=== PATIENT | male | born 2000 | race Caucasian/White ===

== ENCOUNTER 2021-11-25 06:48 | Emergency (ER) | payer MEDICAID, SELFPAY ==
--- NOTE | ~2021-11-25 | XR_ITS ---
EXAMINATION: XR CHEST CLINICAL INFORMATION: Dyspnea. COMPARISON: None TECHNIQUE: Frontal view of the chest was obtained. FINDINGS: No airspace opacities or pleural effusions are seen. The cardiomediastinal silhouette is normal. No acute osseous abnormality is seen. XR/XR chest 1V IMPRESSION: Clear lungs. No acute cardiopulmonary process.
[2021-11-25 06:50] VITALS: BP 156/85; PULSE 134; RESP 20; TEMP 36.9; O2SAT 96; BMI 29.8
[2021-11-25 07:07] LABS: COVID-19 Test Positive (Negative)
--- NOTE | 2021-11-25 07:57 | ED_ITS ---
HPI - SOB/Dyspnea General Chief Complaint: Dyspnea Stated Complaint: SoB, Chills Time Seen by Provider: 11/25/21 07:57 Source: patient Mode of arrival: ambulatory Limitations: no limitations History of Present Illness HPI Narrative: 21 years old male came in for evaluation of shortness of breath. Patient with history of asthma, been having shortness of breath and wheezing patient ran out of albuterol at home, patient is vaccinated with 2 Pfizer vaccination, patient possibly exposed to somebody sick, no fever but chills, patient ran out of his albuterol feeling wheezing. Patient tested positive for COVID today. Related Data Previous Rx's Medication Instructions Recorded albuterol sulfate 90 mcg/actuation 1 inh INHALATION QID PRN #8.5 g 11/25/21 aerosol inhaler prednisone 20 mg tablet 20 mg PO BID #10 tab 11/25/21 Allergies Allergy/AdvReac Type Severity Reaction Status Date / Time No Known Allergies Allergy Verified 11/25/21 06:50 Review of Systems Review of Systems: All other systems are reviewed and are negative Constitutional: Reports as per HPI and Reports no additional constitutional complaints Eyes: Reports as per HPI and Reports no additional eye complaints Reports system reviewed and no additional complaints, except as documented Cardiovascular: Reports as per HPI and Reports no additional cardiovascular complaints Respiratory: Reports as per HPI and Reports no additional respiratory complaints Gastrointestinal: Reports as per HPI and Reports no additional gastrointestinal complaints Genitourinary: Reports no additional female genitourinary complaints Musculoskeletal: Reports no additional musculoskeletal complaints Skin/Breast: Reports system reviewed and no additional complaints, except as docu Psychiatric: Reports no additional psychiatric complaints Endocrine: Reports no additional endocrine complaints Hematologic/Lymphatic: Reports no additional hematologic/lymphatic complaints Allergic/Immunologic: Reports no additional allergic/immunologic complaints Reports system reviewed and no additional complaints, except as documented and Reports Abnormal speech present [facility] Social History Social History Advance Directives: No Advance Directives Information Provided: Yes Physical Exam Vital Signs: Vital Signs: Last Vital Signs Temp 98.4 F 11/25/21 06:50 Pulse 134 H 11/25/21 06:50 Resp 20 11/25/21 06:50 BP 156/85 H 11/25/21 06:50 Pulse Ox 96 11/25/21 06:50 BMI result Body Mass Index 29.8 Vital signs have been reviewed as appeared to be correct. Blood pressure normal. Heart rate elevated. Respiration rate normal. Temperature normal. Oxygen saturation normal. Appearance: Alert. Oriented X3. No acute distress. Head: Normal external exam. Normocephalic. Atraumatic. No Bolivar signs noted. No raccoon eyes noted Eyes: PERRLA. EOMI. Conjunctiva and sclera normal. Eyelids normal. ENT: TM's Normal. Pharynx normal. Uvula midline. Moist mucous membranes. No trismus noted. No drooling noted. No muffled voice noted. Neck: Normal inspection. Neck supple. FROM. No adenopathy. Thyroid Normal. No meningeal signs. No neck mass noted. CVS: Normal heart rate and rhythm. Heart sound normal. No murmurs noted. Pulses normal throughout. Respiratory: No respiratory distress. Painless inspiration. Breath sounds normal. Diffuse expiratory mild wheezing with prolonged expiration. Chest nontender. No accessory muscle usage noted or decreased air movement noted. Abdomen: Soft and nontender. Bowel sounds normal in all 4 quadrants. No distention noted. No organomegaly noted. No visible injury noted. Back: No CVA tenderness. Full range of motion noted. Skin: Skin warm and dry. Normal skin color. Normal skin turgor. No rashes/lesions/lacerations noted. Extremities: No lower extremity edema. Extremities exhibit normal range of motion. Extremities nontender. Neuro: Oriented X 3. Cranial nerve exam: II-XII are grossly intact No motor deficit. No sensory deficit. Reflexes normal. Course Course Course Narrative: Assessment and plan. 21-year-old male with history of asthma tested positive for COVID came in for difficulty breathing, patient meet criteria for monoclonal therapy which will recommend for the patient, will prescribe the patient albuterol and short course of prednisone. MDM - SOB/Dyspnea Lab Data Attestation: I reviewed the patient's lab results. Labs: Lab Results 11/25/21 Range/Units 06:54 COVID-19 (EVAN) Positive A (Negative) COVID-19 Clin Com See Note Imaging Data Chest x-ray: Attestation: I personally reviewed and interpreted this imaging study as follows: Radiologist's impression: Clear lungs. Discharge Plan Discharge Clinical Impression: Asthma with exacerbation, COVID-19 virus infection Patient Disposition: Home, Self-Care Instructions: COVID-19 (Coronavirus Disease 2019) (ED) Additional Instructions: Use your medication as prescribed. Seek immediate medical attention of worsening of breathing. As we discussed your are a good candidate for monoclonal therapy for COVID 19 infection please follow instruction to obtain the therapy. Prescriptions: New albuterol sulfate 90 mcg/actuation HFA aerosol inhaler 1 inh inhalation QID PRN (Reason: shortness of breath or wheezing) Qty: 8.5 RF: 0 prednisone 20 mg tablet 20 mg PO BID Qty: 10 RF: 0 Referrals: Angela Milton ETHNOARCHAEOLOGIST [Primary Care Provider] - 2 days Stand Alone Forms: Work/School Release
--- NOTE | 2021-11-25 08:14 | PC.NURSE ---
PT EVALUATED BY DR PAYTON. PLAN IS FOR DC HOME WITH PRESCRIPTIONS. PHYSICIAN SPOKE TO PATIENT REGARDING MONOCLONAL ANTIBODY THERAPY. REFERRAL GIVEN TO PATIENT BY MD. PT AWARE AND AGREEABLE TO PLAN. AWAKE, ALERT AND ORIENTED X 3. SKIN WARM AND DRY. RESP UNLABORED. DENIES N/V. NO ACUTE DISTRESS NOTED.
== END 2021-11-25 08:24 | disposition home or self-care (01) ==
PROVIDERS: Emergency Provider Emergency Medicine; PCP Nurse Practitioner Family
DX: U07.1 COVID-19 (principal); J45.901 Unspecified asthma with (acute) exacerbation; R06.02 Shortness of breath
CPT/HCPCS: 36415; 71045; 87635; 99283

== ENCOUNTER 2022-02-06 15:17 | Emergency (ER) | payer MEDICAID, SELFPAY ==
[2022-02-06 15:19] VITALS: BP 147/98; PULSE 110; RESP 19; TEMP 36.6; O2SAT 98; BMI 28.0
--- NOTE | 2022-02-06 15:52 | ED.GENADULT ---
HPI - General Adult General Chief complaint: General Medical Stated complaint: infected and stuck piercing Time Seen by Provider: 02/06/22 15:52 Source: patient Mode of arrival: ambulatory Limitations: no limitations History of Present Illness HPI narrative: 21 y/o male presents to the ER for evaluation of an earring stuck into his right ear lobe. He states his roommate was trying to remove the packing and ended up pulling of the front of the hearing in to his ear lobe so that he can no longer be visualized from the front. He reports prior to this there was a pustule in the front that was popped and pus came out. It was also some bleeding. He had just gotten the ear pierced about 2 and half weeks ago. He had been cleaning it with alcohol pads intermittently. MD complaint: Hearing stuck in the ear lobe Onset (ago): hour(s) Location: face Radiation: non-radiation Severity: moderate Severity scale (1-10): 6 Quality: aching Pain Consistency: constant Relieving factors: none Exacerbating factors: other (Palpation) Associated symptoms: denies other symptoms Treatments prior to arrival: none Related Data Previous Rx's Medication Instructions Recorded albuterol sulfate 90 mcg/actuation 1 inh INHALATION QID PRN #8.5 g 11/25/21 aerosol inhaler prednisone 20 mg tablet 20 mg PO BID #10 tab 11/25/21 cephalexin 500 mg capsule 500 mg PO Q6H 3 Days #12 cap 02/06/22 Allergies Allergy/AdvReac Type Severity Reaction Status Date / Time No Known Allergies Allergy Verified 11/25/21 06:50 Review of Systems Constitutional: Constitutional: Denies chills and Denies fever(s) ENT: Reports Normal hearing present, Denies ear discharge, Reports otalgia, Denies facial pain, Denies hearing loss and Denies neck pain Cardiovascular: Cardiovascular: Denies chest pain Musculoskeletal: Musculoskeletal: Denies neck pain Integumentary/Breasts: Skin/Breast: Reports swelling, Reports skin pain and Reports skin swelling Neurologic: Reports Normal hearing present Psychiatric: Psychiatric: Reports anxiety Hematologic/Lymphatic: Hematologic/Lymphatic: Reports easy bleeding PMFSH Past Medical History Attestation statement: The following information was validated with the patient. Medical History (Updated 02/06/22 @ 16:06 by JOCE Garibay) ADH disorder Asthma Panic disorder Social History Social History Advance Directives: No Advance Directives Information Provided: No Physical Exam ED Vital Signs: Vital Signs - 24 hr 02/06/22 15:19 Temperature 98 F Pulse Rate 110 H Respiratory Rate 19 Blood Pressure 147/98 H Pulse Oximetry 98 BMI result Body Mass Index 28.0 Const General: cooperative, healthy appearing and no acute distress Nutritional Appearance: average body habitus Orientation/consciousness: patient oriented x3 Limitations: no limitations HENMT Head: Yes normal to inspection, Yes normocephalic and Yes atraumatic Ears: hearing grossly normal bilaterally, TM's normal bilaterally and external ear abnormal auricular tenderness on the right and localized (impacted earring with oozing. tender) General nose exam: Normal external nose present and Normal nares present Face and sinus: Yes normal facial exam Mouth: Normal oral and palatal mucosa present and lip normal Eyes General: appearance normal, both eyes and all related structures Neck Neck: Yes normal visual inspection, Yes no lymphadenopathy and Yes supple Chest Chest palpation & inspection: normal inspection of the chest Resp Effort & Inspection: normal respiratory effort and able to speak in complete sentences Skin General skin exam: no rashes or lesions noted Neuro General: patient oriented x3 Cranial nerves: Yes Normal hearing present Extrem General: Yes normal to inspection Psych Appearance: grossly normal and well kempt Mental Status: mental status grossly normal Speech and movement: Normal speech and movement present Course Course Course Narrative: 21 y/o male presenting with earring stuck into the right earlobe with evidence of localized infection. Earring was able to be replaced into the correct position after anesthetized with 1 cc of 2% lidocaine. The area was cleansed. He was instructed to clean the area twice per day and gently twisting hearing to help healing and infection. Will give 3 days of oral Keflex given reports of postural with evidence of localized infection. He does not want to take the earring out however we discussed that if his symptoms worsened it is best to take the earring out and allow the end ear lobe to heal. Patient agrees with plan. Stable for discharge home Procedures Foreign Body Removal Site: right and ear Description of foreign body: other (Hearing) Sedation/Analgesia: other (2% lidocaine. 1 cc.) Technique: manual removal Confirmed by:: direct visualization Complications: pain Post-procedure exam: awake, alert Critical Care Time Critical Care Time Critical Care Time: No Discharge Plan Discharge Clinical Impression: Complication of ear piercing Patient Disposition: Home, Self-Care Instructions: Puncture Wound (DC) Additional Instructions: Use a topical cleaning solution to both the front and back of the earring and gently twist the earring twice per day. If you notice worsening signs or symptoms of infection, recommend removal of the earring to allow your earlobe to completely heal. Prescriptions: New cephalexin 500 mg capsule 500 mg PO Q6H 3 Days Qty: 12 0RF No Action albuterol sulfate 90 mcg/actuation HFA aerosol inhaler 1 inh inhalation QID PRN (Reason: shortness of breath or wheezing) Qty: 8.5 0RF prednisone 20 mg tablet 20 mg PO BID Qty: 10 0RF Interventions: ED Discharge Assessment Last Done: 02/06/22 16:14
== END 2022-02-06 16:15 | disposition home or self-care (01) ==
PROVIDERS: Emergency Provider Emergency Medicine; PCP Nurse Practitioner Family
DX: H95.89 Other postprocedural complications and disorders of the ear and mastoid process, not elsewhere classified (principal); L08.89 Other specified local infections of the skin and subcutaneous tissue
CPT/HCPCS: 99283; 99284

== ENCOUNTER 2023-05-13 13:24 | Emergency (ER) | payer OTHER, SELFPAY ==
--- NOTE | ~2023-05-13 | CT_ITS ---
EXAMINATION: CT ABDOMEN AND PELVIS WITH CONTRAST CLINICAL INFORMATION: Right-sided flank pain. COMPARISON: None available. TECHNIQUE: Multidetector volumetric images were obtained from the superior aspect of the liver through the pubic symphysis following administration 85 mL of Omnipaque 350 intravenous contrast. Sagittal and coronal reformatted images were obtained on the technologist's workstation. Oral contrast: No This CT examination was performed using dose optimization techniques as appropriate, variously including the following: *Automated exposure control *Adjustment of mA and/or kV according to patient size (this includes techniques or standardized protocols for targeted exams where dose is matched to indication/reason for exam; i.e. extremities or head) *Use of iterative reconstruction technique DLP: 480 mGy-cm FINDINGS: LUNG BASES: The visualized lung bases are unremarkable. LIVER, GALLBLADDER, AND BILIARY TREE: The liver is normal in size, shape, and attenuation. No focal hepatic lesion or biliary ductal dilatation is present. The gallbladder is unremarkable with no evidence of radiopaque gallstones, gallbladder wall thickening, or obvious pericholecystic inflammatory changes. PANCREAS: Unremarkable. SPLEEN: Unremarkable. ADRENAL GLANDS: Unremarkable. KIDNEYS AND URETERS: The kidneys are normal in size, shape, and attenuation. No hydronephrosis, hydroureter, or calculi seen. No perinephric stranding. BLADDER: Unremarkable. GASTROINTESTINAL TRACT: The small and large bowel are unremarkable. The appendix is unremarkable. ABDOMINAL WALL: No significant hernia is appreciated. LYMPH NODES: Normal. VASCULAR: Unremarkable. PELVIC VISCERA: Unremarkable. OSSEOUS STRUCTURES: Unremarkable. CT/CT abdomen pelvis w IV con IMPRESSION: No significant abnormality. Fleischner guidelines were followed.
--- NOTE | 2023-05-13 13:55 | ED_ITS ---
HPI - Abdominal Pain General Chief Complaint: Abdominal Pain Stated Complaint: ? Appendicitis Time Seen by Provider: 05/13/23 17:17 Source: patient Mode of arrival: ambulatory Limitations: no limitations History of Present Illness HPI narrative: 22-year-old male who presents emergency department for evaluation of right lower quadrant pain and right flank pain. The patient states that the pain came on suddenly this morning at 09:00 hours. He states that the pain is a severe, sharp, jabbing pain which is constant but waxes and wanes in intensity. The pain is 6/10 at its worst. The patient points to his right lower quadrant when asked to localize the pain. He states the pain also radiates to his right flank area. The patient denied any testicular pain. He denied fever, chills, frequency, urgency or dysuria. He states he did have nausea with no vomiting. He had 2 loose diarrheal stools with no blood in the stool. This is 1st episode of this type of pain. The patient went to [facility] and was referred to the emergency department for evaluation. I did review the urgent care notes, patient had a urinalysis which is negative blood, positive for trace proteins. Related Data Previous Rx's Medication Instructions Recorded albuterol sulfate 90 mcg/actuation 1 inh inhalation QID PRN shortness 11/25/21 aerosol inhaler of breath or wheezing #8.5 grams prednisone 20 mg tablet 20 mg PO BID #10 tabs 11/25/21 cephalexin 500 mg capsule 500 mg PO Q6H 3 days #12 caps 02/06/22 acetaminophen 500 mg tablet 1,000 mg PO Q6H PRN fever or pain 05/13/23 (Tylenol Extra Strength) #20 tabs ibuprofen 400 mg tablet 400 mg PO TID PRN fever or pain 05/13/23 #30 tabs ondansetron 4 mg disintegrating 4 mg PO Q6-8H PRN nausea and 05/13/23 tablet vomiting #14 tabs Allergies Allergy/AdvReac Type Severity Reaction Status Date / Time No Known Allergies Allergy Verified 11/25/21 06:50 Review of Systems Review of Systems Yes all other systems are reviewed and are negative [facility] Past Medical History [facility] Narrative: Past medical history: Recurrent pneumonia, asthma, ADHD. Past surgical history: None. Social history: He smokes cigarettes. He denies alcohol use. Smokes marijuana. Medical History ADH disorder Asthma Panic disorder Social History Social History Smoked in Last 30 Days: No Advance Directives: No Advance Directives Information Provided: No Physical Exam ED Vital Signs: Vital Signs - 24 hr 05/13/23 13:57 05/13/23 17:07 05/13/23 18:00 Temperature 98 F 98.3 F 98.2 F Pulse Rate 87 96 87 Respiratory Rate 16 16 16 Blood Pressure 147/99 H 140/86 H 126/79 Pulse Oximetry 99 98 Oxygen Delivery Method Room Air Room Air Room Air 05/13/23 20:00 Temperature 98.3 F Pulse Rate 80 Respiratory Rate 16 Blood Pressure 111/61 Pulse Oximetry 98 Oxygen Delivery Method Room Air BMI result Body Mass Index 28.6 Const General: cooperative and no acute distress Orientation/consciousness: oriented to person and oriented to place Limitations: no limitations HENMT Head: Yes normal to inspection, Yes normocephalic and Yes atraumatic Ears: external ears normal General nose exam: Normal external nose present Face and sinus: Yes normal facial exam Mouth: Normal oral and palatal mucosa present Throat: Yes posterior oropharynx normal Eyes General: appearance normal, both eyes and all related structures Pupils: Equal, round and reactive pupils present Neck Neck: Yes normal visual inspection, Yes no lymphadenopathy, Yes trachea midline and Yes supple Chest Chest palpation & inspection: normal inspection of the chest and normal palpation of entire chest wall Resp Effort & Inspection: normal respiratory effort and able to speak in complete sentences Auscultation: clear to auscultation bilaterally Cardio Rate: regular rate Rhythm: regular rhythm Heart sounds: S1 normal heart sound present, S2 normal heart sound present and no murmurs GI Other: Patient's abdomen is nondistended, he has moderate right lower quadrant tenderness, mild right flank tenderness normoactive bowel sounds, no rebound, no voluntary or involuntary guarding General: Yes no CVA tenderness Back/Spine/Pelvis Back: no CVA tenderness Skin General skin exam: no rashes or lesions noted Neuro General: oriented to person and oriented to place Cranial nerves: Yes CN's II-XII intact bilaterally and Yes Equal, round and reactive pupils present Cognition (Neuro): normal cognition Motor exam (neuro): 5/5 motor strength present throughout Extrem General: Yes normal to inspection Psych Appearance: grossly normal Speech and movement: Normal speech and movement present Affect: normal affect Attitude: cooperative Thought process: Normal thought process present Thought content: Normal thought content present Course Course Course Narrative: RME: 22yo M w/no sig PMHx c/o RLQ abdominal pain radiating to R back w/diarrhea and nausea x this morning. was sent in from [facility]. denies urinary sx, vomiting, testiculalr pain +RLQ & R CVAT noted on exam, no rebound or guarding Labs, UA ordered Full HPI, ROS and PE to be performed by primary ED provider. Medical Decision Making Medical Decision Making [facility] Narrative: 22-year-old male who presents emergency department for evaluation of sudden onset of right lower quadrant and right flank pain which began at 09:00 hours, the pain woke him up from sleep. Pain is been constant but waxing waning intensity. He had associated nausea with no vomiting. He also had 2 episodes of diarrhea with his pain. Vital signs revealed an elevated blood pressure of 140/99 otherwise unremarkable. Patient does have localized tenderness in his r ight lower quadrant as well as right flank tenderness. Following tests were ordered CBC, BMP, liver tests, lipase, urinalysis. CT scan of the abdomen pelvis with IV contrast was also ordered. I ordered normal saline x1 L, Toradol 15 mg IV and Zofran 4 mg IV. 2030: The patient's pain improved with IV Toradol, he still have persistent nausea and was given Reglan 10 mg IV and Benadryl 25 mg IV with improvement of his symptoms. CT scan of the abdomen pelvis revealed no renal disease and a normal appearing appendix. Patient's repeat abdominal exam revealed no right lower quadrant tenderness whi ch is reassuring. I did discuss the possibility of early appendicitis and the need for follow-up with the patient. Patient was advised to take Tylenol, ibuprofen and Zofran and to return to the emergency department if his symptoms get worse or if her symptoms do not resolve in 24 hours. Differential Diagnosis Differential diagnosis includes but is not limited to appendicitis, diverticulitis, renal colic, ureteral stone, pancreatitis, viral syndrome Admission/Observation Consideration of admission/observation: Escalation of care including admission/observation considered Lab Data [facility] Lab Attestation statement: I reviewed the patient's lab results. My interpretation patient's laboratory evaluation is as follows: CBC, BMP, liver panel and lipase were normal. 05/13/23 14:12 05/13/23 14:12 Labs: Lab Results 05/13/23 05/13/23 05/13/23 Range/Units 14:12 14:12 14:12 WBC 8.7 (4.8-10.8) X10*3/uL RBC 5.62 (4.60-5.80) X10*6/uL Hgb 16.9 (14.0-18.0) g/dl Hct 48.2 (42.0-52.0) % MCV 85.8 (80.0-98.0) fL MCH 30.1 (27.0-33.0) pg MCHC 35.1 (31.0-36.0) g/dl RDW 12.5 (11.0-16.0) % Plt Count 323 (160-400) X10*3/uL MPV 9.0 L (9.4-12.4) fL Immature Gran % (Auto) 0.5 H (0.0-0.4) % Neut % (Auto) 60.9 (45-73) % Lymph % (Auto) 27.4 (20-40) % [place] % (Auto) 8.9 (2-11) % Eos % (Auto) 1.6 (0-4) % Baso % (Auto) 0.7 (0-2) % Lymph # (Auto) 2.4 (1.2-4.9) X10*3/uL [place] # (Auto) 0.8 (0.1-1.2) X10*3/uL Eos # (Auto) 0.1 (0.0-0.4) X10*3/uL Baso # (Auto) 0.1 (0.0-0.2) X10*3/uL Abs Immat Gran (auto) 0.04 H (0.00-0.03) X10*3/uL Absolute Neuts (auto) 5.3 (2.0-8.3) x10*3/uL Absolute Nucleated RBC 0.000 (0.0-0.012) X10*3/uL Nucleated RBC % (auto) 0.0 (0.0-0.2) /100WBC PT 11.8 (10.0-13.1) SEC INR 1.0 (0.9-1.1) Sodium 140 (135-145) mmol/L Potassium 4.0 (3.3-5.1) mmol/L Chloride 108 (96-108) mmol/L Carbon Dioxide 23 (22-29) mmol/L Anion Gap 13 (12-20) BUN 16 (9-16) mg/dL Creatinine 0.91 (0.5-1.4) mg/dL Estim Creat Clear Calc 125.7 Estimated GFR > 60 Random Glucose 95 (60-115) mg/dL Calcium 9.5 (8.4-10.2) mg/dL Magnesium 2.2 (1.6-2.6) mg/dL Total Bilirubin 0.5 (0.0-1.0) mg/dL Direct Bilirubin 0.1 (0.0-0.5) mg/dL AST 19 (5-37) U/L ALT 30 (0-40) U/L Alkaline Phosphatase 105 (39-117) U/L Total Protein 8.0 (6.5-8.0) g/dL Albumin 4.5 (3.5-5.0) g/dL Lipase 31 (8-78) U/L Urine Color Urine Appearance Urine pH (5.0-9.0) Ur Specific Fitzpatrick (1.005-1.025) Urine Protein (Neg-Trace) mg/dL Urine Glucose (UA) (Negative) mg/dL Urine Ketones (Negative) mg/dL Urine Blood (Negative) Urine Nitrite (Negative) Ur Leukocyte Esterase (Negative) 05/13/23 Range/Units 17:17 WBC (4.8-10.8) X10*3/uL RBC (4.60-5.80) X10*6/uL Hgb (14.0-18.0) g/dl Hct (42.0-52.0) % MCV (80.0-98.0) fL MCH (27.0-33.0) pg MCHC (31.0-36.0) g/dl RDW (11.0-16.0) % Plt Count (160-400) X10*3/uL MPV (9.4-12.4) fL Immature Gran % (Auto) (0.0-0.4) % Neut % (Auto) (45-73) % Lymph % (Auto) (20-40) % [place] % (Auto) (2-11) % Eos % (Auto) (0-4) % Baso % (Auto) (0-2) % Lymph # (Auto) (1.2-4.9) X10*3/uL [place] # (Auto) (0.1-1.2) X10*3/uL Eos # (Auto) (0.0-0.4) X10*3/uL Baso # (Auto) (0.0-0.2) X10*3/uL Abs Immat Gran (auto) (0.00-0.03) X10*3/uL Absolute Neuts (auto) (2.0-8.3) x10*3/uL Absolute Nucleated RBC (0.0-0.012) X10*3/uL Nucleated RBC % (auto) (0.0-0.2) /100WBC PT (10.0-13.1) SEC INR (0.9-1.1) Sodium (135-145) mmol/L Potassium (3.3-5.1) mmol/L Chloride (96-108) mmol/L Carbon Dioxide (22-29) mmol/L Anion Gap (12-20) BUN (9-16) mg/dL Creatinine (0.5-1.4) mg/dL Estim Creat Clear Calc Estimated GFR Random Glucose (60-115) mg/dL Calcium (8.4-10.2) mg/dL Magnesium (1.6-2.6) mg/dL Total Bilirubin (0.0-1.0) mg/dL Direct Bilirubin (0.0-0.5) mg/dL AST (5-37) U/L ALT (0-40) U/L Alkaline Phosphatase (39-117) U/L Total Protein (6.5-8.0) g/dL Albumin (3.5-5.0) g/dL Lipase (8-78) U/L Urine Color Yellow Urine Appearance Clear Urine pH 6.5 (5.0-9.0) Ur Specific Fitzpatrick >= 1.030 H (1.005-1.025) Urine Protein Negative (Neg-Trace) mg/dL Urine Glucose (UA) Negative (Negative) mg/dL Urine Ketones Trace (Negative) mg/dL Urine Blood Negative (Negative) Urine Nitrite Negative (Negative) Ur Leukocyte Esterase Negative (Negative) Radiology Impression Discussion of test interpretation with radiology: I have reviewed the radiologist's reading. Radiologist Impression: CT abdomen pelvis w IV con ...KIDNEYS AND URETERS: The kidneys are normal in size, shape, and attenuation. No hydronephrosis, hydroureter, or calculi seen. No perinephric stranding. BLADDER: Unremarkable. GASTROINTESTINAL TRACT: The small and large bowel are unremarkable. The appendix is unremarkable. IMPRESSION: No significant abnormality. Fleischner guidelines were followed. Dictated By:Martín Flores MD Medications Administered Discontinued Medications Generic Name Dose Route Start Last Admin Trade Name Freq PRN Reason Stop Dose Admin Diphenhydramine HCl 25 mg 05/13/23 19:11 05/13/23 19:33 Diphenhydramine Hcl 50 Mg/Ml Vial IVPUSH 05/13/23 19:12 25 mg ONCE ONE Administration Sodium Chloride 1,000 mls @ 999 mls/hr 05/13/23 17:27 05/13/23 19:20 Ns IV 05/13/23 18:27 Infused .Q1H1M STA Infusion Iohexol 100 ml 05/13/23 18:41 05/13/23 18:41 Iohexol 350 Mg/Ml 100 Ml Infus..Btl IV 05/13/23 18:42 85 ml ONCE ONE Administration Ketorolac Tromethamine 15 mg 05/13/23 17:27 05/13/23 18:17 Ketorolac Tromethamine 15 Mg/Ml Vial IVPUSH 05/13/23 17:28 15 mg ONCE STA Administration Metoclopramide HCl 10 mg 05/13/23 19:11 05/13/23 19:33 Metoclopramide Hcl 10 Mg/2 Ml Vial IVPUSH 05/13/23 19:12 10 mg ONCE STA Administration Ondansetron HCl 4 mg 05/13/23 17:27 05/13/23 18:17 Ondansetron Hcl 4 Mg/2 Ml Vial IVPUSH 05/13/23 17:28 4 mg ONCE ONE Administration Discharge Plan Discharge Clinical Impression: Abdominal pain Qualifiers: Abdominal location: right lower quadrant Qualified Code(s): R10.31 - Right lower quadrant pain Vomiting Qualifiers: Vomiting type: unspecified Nausea presence: with nausea Qualified Code(s): R11.2 - Nausea with vomiting, unspecified Patient Disposition: Home, Self-Care Instructions: Abdominal Pain (ED) Additional Instructions: Your blood work was normal. The CT scan of your abdomen pelvis with IV contrast revealed normal kidneys with no evidence for kidney stone and a normal appearing appendix. Your tenderness improved with the treatment that received in the emergency department. At this time, I do not think that you have appendicitis however if your pain gets worse or if it does not resolve in 24 hours then you need to return to the emergency department for re-evaluation to make sure that you do not have appendicitis. Take ibuprofen 400 mg pills, 1 pills every 6 hours as needed for pain. Take Tylenol (acetaminophen) 500 mg pills, 2 pills every 4 to 6 hours as needed for pain. Take Zofran ODT 4 mg pills, 1 pill dissolved in your mouth every 8 hours as need ed for nausea and vomiting. Follow-up with your doctor in 2 days. Please return to the emergency department if your symptoms get worse or if you develop any symptoms that are concerning to you. Prescriptions: New acetaminophen [Tylenol Extra Strength] 500 mg tablet 1,000 mg PO Q6H PRN (Reason: fever or pain) Qty: 20 0RF ibuprofen 400 mg tablet 400 mg PO TID PRN (Reason: fever or pain) Qty: 30 0RF ondansetron 4 mg tablet,disintegrating 4 mg PO Q6-8H PRN (Reason: nausea and vomiting) Qty: 14 0RF No Action cephalexin 500 mg capsule 500 mg PO Q6H 3 Days Qty: 12 0RF albuterol sulfate 90 mcg/actuation HFA aerosol inhaler 1 inh inhalation QID PRN (Reason: shortness of breath or wheezing) Qty: 8.5 0RF prednisone 20 mg tablet 20 mg PO BID Qty: 10 0RF
[2023-05-13 13:57] VITALS: BP 147/99; PULSE 87; RESP 16; TEMP 36.6; O2SAT 99; BMI 28.6
[2023-05-13 14:18] LABS: MANUAL DIFF FLAG NO
[2023-05-13 14:24] LABS: Basophils Absolute Auto 0.1 X10*3/uL (0.0-0.2); Basophils Percent Auto 0.7 % (0-2); Eosinophils Absolute Auto 0.1 X10*3/uL (0.0-0.4); Eosinophils Percent Auto 1.6 % (0-4); Hematocrit 48.2 % (42.0-52.0); Hemoglobin 16.9 g/dl (14.0-18.0); Imm Gran Abs Auto 0.04 X10*3/uL (0.00-0.03); Imm Gran Pct Auto 0.5 % (0.0-0.4); Lymphocytes Absolute Auto 2.4 X10*3/uL (1.2-4.9); Lymphocytes Percent Auto 27.4 % (20-40); Mean Corpuscular HGB Conc 35.1 g/dl (31.0-36.0); Mean Corpuscular Hemoglobin 30.1 pg (27.0-33.0); Mean Corpuscular Volume 85.8 fL (80.0-98.0); Monocytes Absolute Auto 0.8 X10*3/uL (0.1-1.2); Monocytes Percent Auto 8.9 % (2-11); Neutrophils Absolute Auto 5.3 x10*3/uL (2.0-8.3); Neutrophils Percent Auto 60.9 % (45-73); Platelet Count 323 X10*3/uL (160-400); Red Blood Count 5.62 X10*6/uL (4.60-5.80); Red Cell Distribution Width 12.5 % (11.0-16.0); White Blood Count 8.7 X10*3/uL (4.8-10.8)
[2023-05-13 14:26] LABS: Prothrombin Time 11.8 SEC (10.0-13.1)
[2023-05-13 14:36] LABS: Alanine Aminotransferase 30 U/L (0-40); Albumin Level 4.5 g/dL (3.5-5.0); Alkaline Phosphatase 105 U/L (39-117); Anion Gap 13 (12-20); Aspartate Amino Transferase 19 U/L (5-37); Bilirubin Direct 0.1 mg/dL (0.0-0.5); Bilirubin Total 0.5 mg/dL (0.0-1.0); Blood Urea Nitrogen 16 mg/dL (9-16); Calcium 9.5 mg/dL (8.4-10.2); Carbon Dioxide 23 mmol/L (22-29); Chloride 108 mmol/L (96-108); Creatinine Clr Calc Pharmacy 125.7; Estimated Glomerular Filt Rate > 60; Glucose Random 95 mg/dL (60-115); Lipase 31 U/L (8-78); Magnesium 2.2 mg/dL (1.6-2.6); Sodium 140 mmol/L (135-145)
[2023-05-13 17:07] VITALS: BP 140/86; PULSE 96; RESP 16; TEMP 36.8; O2SAT 98
[2023-05-13 17:27] LABS: Appearance Urine Clear; Color Urine Yellow; Glucose Urine UA Negative (Negative); Leukocyte Esterase Urine Negative (Negative); Nitrite Urine Negative (Negative); PH 6.5 (5.0-9.0); Specific Gravity - Urine >= 1.030 (1.005-1.025); Urine Blood Negative (Negative); Urine Ketones Trace mg/dL (Negative); Urine Protein Negative (Neg-Trace)
[2023-05-13 18:00] VITALS: BP 126/79; PULSE 87; RESP 16; TEMP 36.8
[2023-05-13] MEDS: ondansetron HCL 4 MG/2 ML VIAL IVPUSH (18:17)
[2023-05-13] MEDS: Ketorolac Tromethamine 15 MG/ML VIAL IVPUSH (18:17)
[2023-05-13] MEDS: 0.9 % Sodium Chloride 1,000 ML 999 ML IV (18:17)
[2023-05-13] MEDS: iohexoL 350 MG/ML 100 ML INFUS..BTL IV (18:41)
[2023-05-13] MEDS: diphenhydrAMINE HCL 50 MG/ML VIAL 25 MG IVPUSH (19:33)
[2023-05-13] MEDS: Metoclopramide HCl 10 MG/2 ML VIAL IVPUSH (19:33)
[2023-05-13 20:00] VITALS: BP 111/61; PULSE 80; RESP 16; TEMP 36.8; O2SAT 98
== END 2023-05-13 20:44 | disposition home or self-care (01) ==
PROVIDERS: Physician Assistant; Emergency Provider Emergency Medicine Emergency Medical Services; PCP Nurse Practitioner Family
DX: R10.31 Right lower quadrant pain (principal); R11.2 Nausea with vomiting, unspecified
CPT/HCPCS: 36415; 74177; 80048; 80076; 81003; 83690; 83735; 85025; 85610; 96361; 96374; 96375; 99284; 99285; J1200; J1885; J2405; J2765; Q9967

== ENCOUNTER 2024-01-23 09:25 | Emergency (ER) | payer MEDICAID, SELFPAY ==
--- NOTE | ~2024-01-23 | CT_ITS ---
EXAMINATION: CT ABDOMEN AND PELVIS WITHOUT CONTRAST CLINICAL INFORMATION: Right lower quadrant pain COMPARISON: 05/13/2023 TECHNIQUE: Multidetector volumetric imaging was performed from the superior aspect of the liver through the pubic symphysis. Sagittal and coronal reformatted images were obtained on the technologist's workstation. This CT examination was performed using dose optimization techniques as appropriate, variously including the following: *Automated exposure control *Adjustment of mA and/or kV according to patient size (this includes techniques or standardized protocols for targeted exams where dose is matched to indication/reason for exam; i.e. extremities or head) *Use of iterative reconstruction technique DLP: 525 mGy-cm FINDINGS: LUNG BASES: The visualized lung bases are unremarkable. LIVER, GALLBLADDER, AND BILIARY TREE: The liver is normal in size and shape but low in density consistent with steatosis. No focal hepatic lesion or biliary ductal dilatation is present. The gallbladder is unremarkable with no evidence of radiopaque gallstones, gallbladder wall thickening, or obvious pericholecystic inflammatory changes. PANCREAS: Unremarkable. SPLEEN: Unremarkable. ADRENAL GLANDS: Unremarkable. KIDNEYS AND URETERS: The kidneys are normal in size, shape, and attenuation. No hydronephrosis, hydroureter, or calculi seen. No perinephric stranding. BLADDER: Unremarkable. GASTROINTESTINAL TRACT: The small and large bowel are unremarkable. The appendix is unremarkable. ABDOMINAL WALL: No significant hernia is appreciated. LYMPH NODES: Normal. VASCULAR: Unremarkable. PELVIC VISCERA: Unremarkable. OSSEOUS STRUCTURES: Unremarkable. CT/CT abdomen pelvis wo IV con IMPRESSION: 1. No acute findings in the abdomen or pelvis and no significant change since 05/13/2023 2. Hepatic steatosis. Fleischner guidelines were followed.
[2024-01-23 09:34] VITALS: BP 158/89; PULSE 92; RESP 18; TEMP 36.6; O2SAT 97; BMI 27.2
[2024-01-23 09:55] LABS: MANUAL DIFF FLAG NO
[2024-01-23 10:08] LABS: Basophils Absolute Auto 0.1 X10*3/uL (0.0-0.2); Basophils Percent Auto 0.7 % (0-2); Eosinophils Absolute Auto 0.1 X10*3/uL (0.0-0.4); Eosinophils Percent Auto 1.1 % (0-4); Hematocrit 47.5 % (42.0-52.0); Hemoglobin 16.8 g/dl (14.0-18.0); Imm Gran Abs Auto 0.02 X10*3/uL (0.00-0.03); Imm Gran Pct Auto 0.3 % (0.0-0.4); Lymphocytes Absolute Auto 2.5 X10*3/uL (1.2-4.9); Lymphocytes Percent Auto 33.8 % (20-40); Mean Corpuscular HGB Conc 35.4 g/dl (31.0-36.0); Mean Corpuscular Hemoglobin 29.8 pg (27.0-33.0); Mean Corpuscular Volume 84.4 fL (80.0-98.0); Mean Platelet Volume 9.2 fL (9.4-12.4); Monocytes Absolute Auto 0.5 X10*3/uL (0.1-1.2); Monocytes Percent Auto 6.4 % (2-11); Neutrophils Absolute Auto 4.2 x10*3/uL (2.0-8.3); Neutrophils Percent Auto 57.7 % (45-73); Platelet Count 316 X10*3/uL (160-400); Red Blood Count 5.63 X10*6/uL (4.60-5.80); Red Cell Distribution Width 12.1 % (11.0-16.0); White Blood Count 7.3 X10*3/uL (4.8-10.8)
--- NOTE | 2024-01-23 10:09 | ED_ITS ---
HPI - Abdominal Pain General Chief Complaint: Abdominal Pain Stated Complaint: r side pain Time Seen by Provider: 01/23/24 09:55 Source: patient and family Mode of arrival: ambulatory Limitations: no limitations History of Present Illness HPI narrative: This is a 23-year-old male with no known medical history presenting to the emergency department with complaints of right-sided abdominal pain since yesterday. Patient reports he has a tough time indicating whether the abdominal pain is upper or lower he says it feels like it is the entire right side and at times it radiates to his right flank. He reports increased urination and clear urine. He reports nausea and vomiting this morning however no nausea or vomiting yesterday. He also feels bloated. Patient denies recent sick contacts. Denies fevers, chills, chest pain, shortness of breath, changes in bowel habits, headache, vision changes, dizziness and weakness. Related Data Previous Rx's Medication Instructions Recorded albuterol sulfate 90 mcg/actuation 1 inh inhalation QID PRN shortness 11/25/21 aerosol inhaler of breath or wheezing #8.5 grams prednisone 20 mg tablet 20 mg PO BID #10 tabs 11/25/21 cephalexin 500 mg capsule 500 mg PO Q6H 3 days #12 caps 02/06/22 acetaminophen 500 mg tablet 1,000 mg (2 x 500 mg) PO Q6H PRN 05/13/23 (Tylenol Extra Strength) fever or pain #20 tabs ibuprofen 400 mg tablet 400 mg PO TID PRN fever or pain 05/13/23 #30 tabs ondansetron 4 mg disintegrating 4 mg PO Q6-8H PRN nausea and 05/13/23 tablet vomiting #14 tabs ketorolac 10 mg tablet 10 mg PO TID PRN pain 5 days #15 01/23/24 tabs ondansetron 4 mg disintegrating 4 mg PO Q6H PRN nausea and 01/23/24 tablet vomiting #14 tabs Allergies Allergy/AdvReac Type Severity Reaction Status Date / Time Alluminum Allergy Rash Uncoded 01/23/24 09:39 Review of Systems Review of Systems Yes all other systems are reviewed and are negative PMFSH Past Medical History Attestation statement: The following information was validated with the patient. Source: old records reviewed and nursing notes reviewed Medical History Panic disorder Asthma ADH disorder Social History Social History Smoked in Last 30 Days: No Use of substances other than those prescribed or required for medical reasons: No Advance Directives: No Advance Directives Information Provided: No Physical Exam ED Vital Signs: Vital Signs - 24 hr 01/23/24 09:34 01/23/24 11:04 Temperature 97.9 F 99.0 F Pulse Rate 92 74 Respiratory Rate 18 18 Blood Pressure 158/89 H 126/77 Pulse Oximetry 97 98 Oxygen Delivery Method Room Air Room Air BMI result Body Mass Index 27.2 vss Appearance: Alert.? Oriented X3.? No acute distress.? Head: Normocephalic, atraumatic, no step-offs or deformities Eyes: Pupils equal, round and reactive to light.? CVS: Normal heart rate and rhythm.? Pulses normal.? Respiratory: No respiratory distress.? Breath sounds normal.? Abdomen: Soft and diffuse r sided abd pain worse to RUQ.?Normal BS throughout Skin: Skin warm and dry.? Normal skin color.? Normal skin turgor.? Extremities: No lower extremity edema.? No calf ttp. 5/5 strength to bilateral upper and lower extremities Back: No midline tenderness, no C-spine tenderness, full range of motion, no CVA tenderness bilaterally Neuro: Oriented X 3.? No motor deficit.? No sensory deficit. CN 2-12 intact Course Reevaluation(s) Reevaluation #1: CBC unremarkable. Chemistry no acute findings requiring intervention. Urine and CT pending. Will give Toradol for pain Time: 10:18 Reevaluation #2: No acute findings in abdomen, pelvis or significant change since 05/13/2023 hepatic steatosis noted. Negative Yepez's sign on exam. Will re-evaluate after Toradol unlikely patient to be discharged home this is likely musculoskeletal pain. UA is still pending. Time: 10:40 Reevaluation #3: UA w/o infection. Patient feeling better. at this time dc home w/ pcp follow up Time: 12:40 Medical Decision Making Medical Decision Making MDM Narrative: 23 year old male presens w/ r sided abd pain since last night Soft and diffuse r sided abd pain worse to RUQ.?Normal BS throughout Will rule out uti vs cystitis vs kidney stone vs reji cystitis vs appendicitis. Unlikely obstruction, pancreatitis, diverticulitis, obstruction, acute abdomen. Will rule out metabolic derangement Plan labs, urine, CT scan Differential Diagnosis Differential Diagnoses: The differential diagnosis associated with the presentation includes Will rule out uti vs cystitis vs kidney stone vs reji cystitis vs appendicitis. Unlikely obstruction, pancreatitis, diverticulitis, obstruction, acute abdomen. Will rule out metabolic derangement Admission/Observation Consideration of admission/observation: Escalation of care including admission/observation considered Possible Lab Data MDM Lab Attestation statement: I reviewed the patient's lab results. 01/23/24 09:49 01/23/24 09:49 Labs: Lab Results 01/23/24 01/23/24 Range/Units 09:49 12:04 WBC 7.3 (4.8-10.8) X10*3/uL RBC 5.63 (4.60-5.80) X10*6/uL Hgb 16.8 (14.0-18.0) g/dl Hct 47.5 (42.0-52.0) % MCV 84.4 (80.0-98.0) fL MCH 29.8 (27.0-33.0) pg MCHC 35.4 (31.0-36.0) g/dl RDW 12.1 (11.0-16.0) % Plt Count 316 (160-400) X10*3/uL MPV 9.2 L (9.4-12.4) fL Immature Gran % (Auto) 0.3 (0.0-0.4) % Neut % (Auto) 57.7 (45-73) % Lymph % (Auto) 33.8 (20-40) % [place] % (Auto) 6.4 (2-11) % Eos % (Auto) 1.1 (0-4) % Baso % (Auto) 0.7 (0-2) % Lymph # (Auto) 2.5 (1.2-4.9) X10*3/uL [place] # (Auto) 0.5 (0.1-1.2) X10*3/uL Eos # (Auto) 0.1 (0.0-0.4) X10*3/uL Baso # (Auto) 0.1 (0.0-0.2) X10*3/uL Abs Immat Gran (auto) 0.02 (0.00-0.03) X10*3/uL Absolute Neuts (auto) 4.2 (2.0-8.3) x10*3/uL Absolute Nucleated RBC 0.000 (0.0-0.012) X10*3/uL Nucleated RBC % (auto) 0.0 (0.0-0.2) /100WBC Sodium 139 (135-145) mmol/L Potassium 3.6 (3.3-5.1) mmol/L Chloride 105 (96-108) mmol/L Carbon Dioxide 24 (22-29) mmol/L Anion Gap 14 (12-20) BUN 8 L (9-16) mg/dL Creatinine 0.87 (0.5-1.4) mg/dL Estim Creat Clear Calc 122.4 Estimated GFR > 60 Random Glucose 118 H (60-115) mg/dL Calcium 9.5 (8.4-10.2) mg/dL Total Bilirubin 0.7 (0.0-1.0) mg/dL AST 23 (5-37) U/L ALT 40 (0-40) U/L Alkaline Phosphatase 79 (39-117) U/L Total Protein 7.7 (6.5-8.0) g/dL Albumin 4.6 (3.5-5.0) g/dL Lipase 29 (8-78) U/L Urine Color Yellow Urine Appearance Clear Urine pH 7.5 (5.0-9.0) Ur Specific [place] 1.015 (1.005-1.025) Urine Protein Negative (Neg-Trace) mg/dL Urine Glucose (UA) Negative (Negative) mg/dL Urine Ketones Negative (Negative) mg/dL Urine Blood Negative (Negative) Urine Nitrite Negative (Negative) Ur Leukocyte Esterase Negative (Negative) Independent Interpretation I performed an independent interpretation of an: CT Scan Radiology Impression Discussion of test interpretation with radiology: I have reviewed the radiologist's reading. External Record Review External record reviewed: Inpatient record, Office record, Outpatient record, Prior outpatient labs, Prior outpatient radiology, Primary care record and Outside ED record Chronic Conditions No known medical history Medications Administered Discontinued Medications Generic Name Dose Route Start Last Admin Trade Name Freq PRN Reason Stop Dose Admin Ketorolac Tromethamine 30 mg 01/23/24 10:18 01/23/24 10:34 Ketorolac Tromethamine 30 Mg/Ml Vial IVPUSH 01/23/24 10:19 30 mg ONCE ONE Administration Ondansetron HCl 4 mg 01/23/24 10:19 01/23/24 10:34 Ondansetron Hcl 4 Mg/2 Ml Vial IVPUSH 01/23/24 10:20 4 mg ONCE ONE Administration Critical Care Time Critical Care Time Critical Care Time: No Discharge Plan Discharge Clinical Impression: Abdominal pain, Nausea & vomiting Patient Disposition: Home, Self-Care Instructions: Acute Nausea and Vomiting (ED), Abdominal Pain (ED) Additional Instructions: Take your medications as prescribed. If you were prescribed antibiotics today, it is important that you take your medication to their entirety, do not skip any doses, do not finish them early. Follow-up with your primary care provider this week. Return to the emergency department with new or worsening symptoms. Such as fevers, chills, chest pain, shortness of breath, nausea, vomiting, dizziness, headache, vision changes, lethargy In case of emergency call 911 Toradol has been sent to your pharmacy, you tolerated this well in the department. Please take this as prescribed do not take this with ibuprofen, or other NSAIDs, do not mix this with alcohol. Side effects of this medication including increased risk for bleeding and possible kidney injury. CT/CT abdomen pelvis wo IV con IMPRESSION: 1. No acute findings in the abdomen or pelvis and no significant change since 05/13/2023 2. Hepatic steatosis. Fleischner guidelines were followed. Prescriptions: New ondansetron 4 mg tablet,disintegrating 4 mg PO Q6H PRN (Reason: nausea and vomiting) Qty: 14 0RF ketorolac 10 mg tablet 10 mg PO TID PRN (Reason: pain) 5 Days Qty: 15 0RF No Action cephalexin 500 mg capsule 500 mg PO Q6H 3 Days Qty: 12 0RF albuterol sulfate 90 mcg/actuation HFA aerosol inhaler 1 inh inhalation QID PRN (Reason: shortness of breath or wheezing) Qty: 8.5 0RF prednisone 20 mg tablet 20 mg PO BID Qty: 10 0RF acetaminophen [Tylenol Extra Strength] 500 mg tablet 1,000 mg PO Q6H PRN (Reason: fever or pain) Qty: 20 0RF ibuprofen 400 mg tablet 400 mg PO TID PRN (Reason: fever or pain) Qty: 30 0RF ondansetron 4 mg tablet,disintegrating 4 mg PO Q6-8H PRN (Reason: nausea and vomiting) Qty: 14 0RF Referrals: Angela Milton [employer] [Primary Care Provider] - 2 days Stand Alone Forms: Work/School Release
[2024-01-23 10:12] LABS: Alanine Aminotransferase 40 U/L (0-40); Albumin Level 4.6 g/dL (3.5-5.0); Alkaline Phosphatase 79 U/L (39-117); Anion Gap 14 (12-20); Aspartate Amino Transferase 23 U/L (5-37); Bilirubin Total 0.7 mg/dL (0.0-1.0); Blood Urea Nitrogen 8 mg/dL (9-16); Calcium 9.5 mg/dL (8.4-10.2); Carbon Dioxide 24 mmol/L (22-29); Chloride 105 mmol/L (96-108); Creatinine Clr Calc Pharmacy 122.4; Estimated Glomerular Filt Rate > 60; Glucose Random 118 mg/dL (60-115); Potassium 3.6 mmol/L (3.3-5.1); Sodium 139 mmol/L (135-145); Total Protein 7.7 g/dL (6.5-8.0)
[2024-01-23] MEDS: Ketorolac Tromethamine 30 MG/ML VIAL IVPUSH (10:34)
[2024-01-23] MEDS: ondansetron HCL 4 MG/2 ML VIAL IVPUSH (10:34)
[2024-01-23 11:02] LABS: Lipase 29 U/L (8-78)
[2024-01-23 11:04] VITALS: BP 126/77; PULSE 74; RESP 18; TEMP 37.2; O2SAT 98
[2024-01-23 12:14] LABS: Appearance Urine Clear; Color Urine Yellow; Glucose Urine UA Negative (Negative); Leukocyte Esterase Urine Negative (Negative); Nitrite Urine Negative (Negative); PH 7.5 (5.0-9.0); Specific Gravity - Urine 1.015 (1.005-1.025); Urine Blood Negative (Negative); Urine Ketones Negative (Negative); Urine Protein Negative (Neg-Trace)
== END 2024-01-23 12:48 | disposition home or self-care (01) ==
PROVIDERS: Physician Assistant; Emergency Provider Emergency Medicine Emergency Medical Services; PCP Nurse Practitioner Family
DX: R10.31 Right lower quadrant pain (principal); R11.2 Nausea with vomiting, unspecified
CPT/HCPCS: 36415; 74176; 80053; 81003; 83690; 85025; 96374; 96375; 99284; J1885; J2405

== ENCOUNTER 2024-05-28 07:16 | Emergency (ER) | payer OTHER, SELFPAY ==
[2024-05-28] VITALS (7 sets, daily range): BP systolic 133–152; BP diastolic 84–96; PULSE 89–125; RESP 14–24; TEMP 36.9–37.2; O2SAT 95–98; BMI 30.7
--- NOTE | ~2024-05-28 | XR_ITS ---
EXAMINATION: XR CHEST CLINICAL INFORMATION: Shortness of breath COMPARISON: None available. TECHNIQUE: Frontal view of the chest was obtained. FINDINGS: The cardiomediastinal silhouette is within normal limits. The lungs are well expanded. There is no focal consolidation, edema, or effusion. No pneumothorax. No acute osseous abnormality. XR/XR chest 1V IMPRESSION: No acute cardiopulmonary process seen.
--- NOTE | 2024-05-28 07:22 | ED.GENADULT ---
HPI - General Adult General Chief complaint: Dyspnea Stated complaint: DIFF BREATHING SORE THROAT Time Seen by Provider: 05/28/24 07:18 Source: patient Mode of arrival: ambulatory Limitations: no limitations History of Present Illness ED Provider: Devaughn LAL HPI narrative: 23 year old male with history of pneumonia and asthma presents with nausea, difficulty breathing, cough, and chest pain x 2 days. He was seen 2 days ago and diagnosed with strep pharyngitis and started amoxicillin, has had these symptoms since then. He continues to have a sore throat, worse on the left side. He describes his chest pain as sharp and worse when lying down, coughing and taking a deep breath. He denies dizziness, fevers, chills, visual changes, difficulty swallowing. Related Data Previous Rx's ?Medication ?Instructions ?Recorded albuterol sulfate 90 mcg/actuation 1 inh inhalation QID PRN shortness 11/25/21 aerosol inhaler of breath or wheezing #8.5 grams prednisone 20 mg tablet 20 mg PO BID #10 tabs 11/25/21 cephalexin 500 mg capsule 500 mg PO Q6H 3 days #12 caps 02/06/22 acetaminophen 500 mg tablet 1,000 mg (2 x 500 mg) PO Q6H PRN 05/13/23 (Tylenol Extra Strength) fever or pain #20 tabs ibuprofen 400 mg tablet 400 mg PO TID PRN fever or pain 05/13/23 #30 tabs ondansetron 4 mg disintegrating 4 mg PO Q6-8H PRN nausea and 05/13/23 tablet vomiting #14 tabs ketorolac 10 mg tablet 10 mg PO TID PRN pain 5 days #15 01/23/24 tabs ondansetron 4 mg disintegrating 4 mg PO Q6H PRN nausea and 01/23/24 tablet vomiting #14 tabs albuterol sulfate 90 mcg/actuation 2 inh inhalation Q4-6H PRN 05/28/24 breath activated powder inhaler shortness of breath or wheezing #1 ea azithromycin 250 mg tablet See Rx Instructions PO .COMPLEX #6 05/28/24 tabs guaifenesin 200 mg tablet 200 mg PO Q4H PRN cough #20 tabs 05/28/24 prednisone 20 mg tablet 20 mg PO DAILY 5 days #5 tabs 05/28/24 Allergies Allergy/AdvReac Type Severity Reaction Status Date / Time Alluminum Allergy Rash Uncoded 05/28/24 07:28 Review of Systems Review of Systems: Yes all other systems are reviewed and are negative [facility] Past Medical History Medical History Panic disorder Asthma ADH disorder Social History Social History Smoked in Last 30 Days: Yes Substance Use Type: Marijuana Advance Directives: No Advance Directives Information Provided: No Physical Exam ED Vital Signs: Vital Signs - 24 hr 05/28/24 07:24 05/28/24 07:59 05/28/24 08:32 Temperature 98.9 F 98.4 F Pulse Rate 115 H 89 125 H Respiratory Rate 24 H 14 19 Blood Pressure 143/96 H 136/86 Pulse Oximetry 96 96 Oxygen Delivery Method Room Air Room Air 05/28/24 08:46 Temperature Pulse Rate 115 H Respiratory Rate 18 Blood Pressure Pulse Oximetry 97 Oxygen Delivery Method Room Air BMI result Body Mass Index 30.7 vss Appearance: Alert.? Oriented X3.? No acute distress.? Head: Normocephalic, atraumatic, no step-offs or deformities Eyes: Pupils equal, round and reactive to light.? ENT: Pharynx mildly erythematous. Uvula midline, no signs of peritonsillar abscess. Neck: Normal inspection.? Neck supple.? CVS: Normal heart rate and rhythm.? Pulses normal.? Respiratory: No respiratory distress.? Breath sounds normal.? Skin: Skin warm and dry.? Normal skin color.? Normal skin turgor.? Extremities: No lower extremity edema.? No calf ttp. 5/5 strength to bilateral upper and lower extremities Neuro: Oriented X 3.? No motor deficit.? No sensory deficit. CN 2-12 intact Course Reevaluation(s) Reevaluation #1: X-ray no acute cardiopulmonary process seen. I did have patient get up and do an ambulatory O2 he is saturating 97% with no labored breathing. He is much improved after albuterol treatment. CBC unremarkable. Chemistry with elevated BUN likely secondary to poor p.o. intake/dehydration. Will give a L of IV fluids. Strep negative. EKG and troponin pending. Flu, COVID, RSV pending. Time: 08:26 Reevaluation #2: EKG sinus tachycardia incomplete right bundle-branch block, ventricular rate of 120 this is likely secondary to multiple albuterol treatments. No ST elevations or inversions concerning for ischemia. Troponin negative, unlikely ACS. Flu, COVID, RSV negative. Strep negative. Educated patient on diagnosis and treatment plan, answered all question, patient verbalizes understanding. At this time patient will be discharged home, advised to return with new or worsening symptoms. Educated on worrisome signs and symptoms and when to return. At this time I feel comfortable discharge home. Time: 10:25 Reevaluation #3: When patient is resting heart rate 100 --> likley due to cough and viral illness Reeval after medicaiton with codeine guaifenesin improved cough. Time: 10:26 Medications Administered Discontinued Medications Generic Name Dose Route Start Last Admin Trade Name Freq PRN Reason Stop Dose Admin Albuterol Sulfate 5 mg 05/28/24 07:30 05/28/24 07:57 Albuterol Sulfate (0.083%) 2.5 Mg/3 Ml Vial.Neb INHALE 05/28/24 07:31 5 mg ONCE ONE Administration Guaifenesin/Codeine Phosphate 5 ml 05/28/24 09:22 05/28/24 09:27 Guaifen/Codeine Sf 200/20/10ml 10 Ml Liquid PO 05/28/24 09:23 5 ml ONCE ONE Administration Sodium Chloride 1,000 mls @ 999 mls/hr 05/28/24 08:15 05/28/24 10:15 Ns IV 05/28/24 09:15 Infused .Q1H1M EDDI Infusion Methylprednisolone Sodium Succinate 125 mg 05/28/24 07:30 05/28/24 07:49 Methylprednisolone Sod Succ 125 Mg/2 Ml Vial IVPUSH 05/28/24 07:31 125 mg ONCE ONE Administration Ondansetron HCl 4 mg 05/28/24 08:04 05/28/24 08:14 Ondansetron Hcl 4 Mg/2 Ml Vial IVPUSH 05/28/24 08:05 4 mg ONCE ONE Administration Medical Decision Making Medical Decision Making MDM Narrative: 23 yo male presenting with nausea, sob, chest pain, cough, on amoxicillin for strep pharyngitis X 2 days PE posterior pharynx mildly erythematous, uvula midline. Hx and PE concerning for URI versus pneumonia versus drug reaction versus asthma exacerbation. Unlikely peritonsillar abscess, pericarditis, acs, pe, ards, dissection. No signs of RPA, epiglotitis, threat to airway Plan - labs, imaging Differential Diagnosis Differential Diagnoses: The differential diagnosis associated with the presentation includes Hx and PE concerning for URI versus pneumonia versus drug reaction versus asthma exacerbation. Unlikely peritonsillar abscess, pericarditis, acs, pe, ards, dissection. No signs of RPA, epiglotitis, threat to airway Admission/Observation Consideration of admission/observation: Escalation of care including admission/observation considered [facility] Lab Data [facility] Lab Attestation statement: I reviewed the patient's lab results. 05/28/24 07:45 05/28/24 07:45 Labs: Lab Results 05/28/24 Range/Units 07:45 WBC 9.8 (4.8-10.8) X10*3/uL RBC 5.27 (4.60-5.80) X10*6/uL Hgb 16.4 (14.0-18.0) g/dl Hct 45.5 (42.0-52.0) % MCV 86.3 (80.0-98.0) fL MCH 31.1 (27.0-33.0) pg MCHC 36.0 (31.0-36.0) g/dl RDW 12.5 (11.0-16.0) % Plt Count 315 (160-400) X10*3/uL MPV 9.3 L (9.4-12.4) fL Immature Gran % (Auto) 0.5 H (0.0-0.4) % Neut % (Auto) 45.4 (45-73) % Lymph % (Auto) 38.4 (20-40) % [place] % (Auto) 12.1 H (2-11) % Eos % (Auto) 2.7 (0-4) % Baso % (Auto) 0.9 (0-2) % Lymph # (Auto) 3.8 (1.2-4.9) X10*3/uL [place] # (Auto) 1.2 (0.1-1.2) X10*3/uL Eos # (Auto) 0.3 (0.0-0.4) X10*3/uL Baso # (Auto) 0.1 (0.0-0.2) X10*3/uL Abs Immat Gran (auto) 0.05 H (0.00-0.03) X10*3/uL Absolute Neuts (auto) 4.5 (2.0-8.3) x10*3/uL Absolute Nucleated RBC 0.000 (0.0-0.012) X10*3/uL Nucleated RBC % (auto) 0.0 (0.0-0.2) /100WBC Sodium 143 (135-145) mmol/L Potassium 3.9 (3.3-5.1) mmol/L Chloride 106 (96-108) mmol/L Carbon Dioxide 25 (22-29) mmol/L Anion Gap 16 (12-20) BUN 22 H (9-16) mg/dL Creatinine 0.90 (0.5-1.4) mg/dL Estim Creat Clear Calc 130.2 Estimated GFR > 60 Random Glucose 105 (60-115) mg/dL Calcium 10.1 D (8.4-10.2) mg/dL Magnesium 1.9 (1.6-2.6) mg/dL Total Bilirubin 0.3 (0.0-1.0) mg/dL AST 18 (5-37) U/L ALT 34 (0-40) U/L Alkaline Phosphatase 82 (39-117) U/L Troponin I High Sens < 2.7 (<3.5-35.0) ng/L Total Protein 7.9 (6.5-8.0) g/dL Albumin 4.7 (3.5-5.0) g/dL Monoscreen Negative (Negative) Influenza Type A (PCR) NEGATIVE (Negative) Influenza Type B (PCR) NEGATIVE (Negative) RSV RNA Qual (PCR) NEGATIVE (Negative) SARS-CoV-2 RNA (RT-PCR) NEGATIVE (Negative) S. pyogenes GrpA VIV Negative (Negative) Independent Interpretation I performed an independent interpretation of an: EKG (Vent. Rate : 120 BPM Atrial Rate : 120 BPM P-R Int : 150 ms QRS Dur : 092 ms QT Int : 320 ms P-R-T Axes : 029 033 -03 degrees QTc Int : 452 ms Sinus tachycardia Incomplete right bundle branch block Borderline ECG No previous ECGs available) and Plain X-Ray (XR/XR chest 1V IMPRESSION: No acute cardiopulmonary process seen. ) Radiology Impression Discussion of test interpretation with radiology: I have reviewed the radiologist's reading. Prescription Management I considered prescription management with: Antibiotic (Azithromycin ) Chronic Conditions Patient?s care impacted by: Other (asthma ) Critical Care Time Critical Care Time Critical Care Time: Yes Total Critical Care Time: 35 Attestation: I attest to this time spent taking care of the patient, obtaining history, physical, reviewing labs, imaging, speaking to my attending, specialist or hospitalist. Discharge Plan Discharge Clinical Impression: Upper respiratory infection, Bronchitis Patient Disposition: Home, Self-Care Instructions: Upper Respiratory Infection (DC), Acute Bronchitis (ED) Additional Instructions: Take your medications as prescribed. If you were prescribed antibiotics today, it is important that you take your medication to their entirety, do not skip any doses, do not finish them early. Follow-up with your primary care provider this week. Return to the emergency department with new or worsening symptoms. Such as fevers, chills, chest pain, shortness of breath, nausea, vomiting, dizziness, headache, vision changes, lethargy In case of emergency call 911 Continue taking your prescribed antibioitics Prescriptions: New azithromycin 250 mg tablet See Rx Instructions .ROUTE .COMPLEX Qty: 6 0RF Rx Instructions: For 250 mg dose pack: take 500 mg today (day 1), then 250 mg for 4 days (days 2-5) prednisone 20 mg tablet 20 mg PO DAILY 5 Days Qty: 5 0RF albuterol sulfate 90 mcg/actuation aerosol powdr breath activated 2 inh inhalation Q4-6H PRN (Reason: shortness of breath or wheezing) Qty: 1 0RF guaifenesin 200 mg tablet 200 mg PO Q4H PRN (Reason: cough) Qty: 20 0RF No Action cephalexin 500 mg capsule 500 mg PO Q6H 3 Days Qty: 12 0RF albuterol sulfate 90 mcg/actuation HFA aerosol inhaler 1 inh inhalation QID PRN (Reason: shortness of breath or wheezing) Qty: 8.5 0RF prednisone 20 mg tablet 20 mg PO BID Qty: 10 0RF acetaminophen [Tylenol Extra Strength] 500 mg tablet 1,000 mg PO Q6H PRN (Reason: fever or pain) Qty: 20 0RF ibuprofen 400 mg tablet 400 mg PO TID PRN (Reason: fever or pain) Qty: 30 0RF ondansetron 4 mg tablet,disintegrating 4 mg PO Q6-8H PRN (Reason: nausea and vomiting) Qty: 14 0RF ondansetron 4 mg tablet,disintegrating 4 mg PO Q6H PRN (Reason: nausea and vomiting) Qty: 14 0RF ketorolac 10 mg tablet 10 mg PO TID PRN (Reason: pain) 5 Days Qty: 15 0RF Referrals: Angela Milton NP [Primary Care Provider] - 2 days Stand Alone Forms: Work/School Release Print Language: Malagasy
[2024-05-28] MEDS: methylPREDNISolone Sod Succ 125 MG/2 ML VIAL IVPUSH (07:49)
[2024-05-28 07:50] LABS: MANUAL DIFF FLAG NO
[2024-05-28 07:51] LABS: Basophils Absolute Auto 0.1 X10*3/uL (0.0-0.2); Basophils Percent Auto 0.9 % (0-2); Eosinophils Absolute Auto 0.3 X10*3/uL (0.0-0.4); Eosinophils Percent Auto 2.7 % (0-4); Hematocrit 45.5 % (42.0-52.0); Hemoglobin 16.4 g/dl (14.0-18.0); Imm Gran Abs Auto 0.05 X10*3/uL (0.00-0.03); Imm Gran Pct Auto 0.5 % (0.0-0.4); Lymphocytes Absolute Auto 3.8 X10*3/uL (1.2-4.9); Lymphocytes Percent Auto 38.4 % (20-40); Mean Corpuscular Hemoglobin 31.1 pg (27.0-33.0); Mean Corpuscular Volume 86.3 fL (80.0-98.0); Mean Platelet Volume 9.3 fL (9.4-12.4); Monocytes Absolute Auto 1.2 X10*3/uL (0.1-1.2); Monocytes Percent Auto 12.1 % (2-11); Neutrophils Absolute Auto 4.5 x10*3/uL (2.0-8.3); Neutrophils Percent Auto 45.4 % (45-73); Platelet Count 315 X10*3/uL (160-400); Red Blood Count 5.27 X10*6/uL (4.60-5.80); Red Cell Distribution Width 12.5 % (11.0-16.0); White Blood Count 9.8 X10*3/uL (4.8-10.8)
[2024-05-28] MEDS: Albuterol Sulfate (0.083%) 2.5 MG/3 ML VIAL.NEB 5 MG INHALE (07:57)
--- NOTE | 2024-05-28 07:59 | PC.NURSE ---
Pt presents to ED via EMS from home, reports he was diagnosed with strep on televisit 2 days ago. Has been taking amoxicillin for 2 days. Reports since last night SOB, fevers, cough w/ green sputum and vomiting. Has hx of asthma and PNA, ran out of inhalers at home. Alert and oriented, breathing labored with frequent coughing. Skin clammy and warm. Sinus tach on bedside monitor and storage bin tender.
[2024-05-28 08:00] LABS: IDNOW Serial# 08D9AD1C; Strep A Nucleic Acid Negative (Negative)
[2024-05-28 08:08] LABS: Alanine Aminotransferase 34 U/L (0-40); Albumin Level 4.7 g/dL (3.5-5.0); Alkaline Phosphatase 82 U/L (39-117); Anion Gap 16 (12-20); Aspartate Amino Transferase 18 U/L (5-37); Bilirubin Total 0.3 mg/dL (0.0-1.0); Blood Urea Nitrogen 22 mg/dL (9-16); Calcium 10.1 mg/dL (8.4-10.2); Carbon Dioxide 25 mmol/L (22-29); Chloride 106 mmol/L (96-108); Creatinine Clr Calc Pharmacy 130.2; Estimated Glomerular Filt Rate > 60; Glucose Random 105 mg/dL (60-115); Magnesium 1.9 mg/dL (1.6-2.6); Potassium 3.9 mmol/L (3.3-5.1); Sodium 143 mmol/L (135-145); Total Protein 7.9 g/dL (6.5-8.0)
[2024-05-28] MEDS: ondansetron HCL 4 MG/2 ML VIAL IVPUSH (08:14)
[2024-05-28] MEDS: 0.9 % Sodium Chloride 1,000 ML 999 ML IV (08:14)
--- NOTE | 2024-05-28 08:20 | PC.NURSE ---
SPO2 ambulation trialed on RA, pt remained 95-96% while ambulating.
--- NOTE | 2024-05-28 08:23 | ECG_ITS ---
Test Reason : SOB Blood Pressure : / mmHG Vent. Rate : 120 BPM Atrial Rate : 120 BPM P-R Int : 150 ms QRS Dur : 092 ms QT Int : 320 ms P-R-T Axes : 029 033 -03 degrees QTc Int : 452 ms Sinus tachycardia Incomplete right bundle branch block Borderline ECG No previous ECGs available Referred By: Juarez Cantor Electronically Signed By:LUBNA SEYMOUR
[2024-05-28 08:27] LABS: Monotest Negative (Negative)
[2024-05-28 08:28] LABS: Influenza A PCR NEGATIVE (Negative); Influenza B PCR NEGATIVE (Negative); Resp Syncy Virus RNA Qual PCR NEGATIVE (Negative); SARS COV2 PCR INHOUSE NEGATIVE (Negative)
[2024-05-28 09:17] LABS: Troponin-I High Sensitivity < 2.7 ng/L (<3.5-35.0)
[2024-05-28] MEDS: guaiFEN/Codeine SF 200/20/10ML 10 ML LIQUID 5 ML PO (09:27)
== END 2024-05-28 11:03 | disposition home or self-care (01) ==
PROVIDERS: Physician Assistant; Emergency Provider Emergency Medicine; PCP Nurse Practitioner Family
DX: J06.9 Acute upper respiratory infection, unspecified (principal); J40 Bronchitis, not specified as acute or chronic; R00.0 Tachycardia, unspecified; I45.10 Unspecified right bundle-branch block; Z03.818 Encounter for observation for suspected exposure to other biological agents ruled out; R05.9 Cough, unspecified
CPT/HCPCS: 0241U; 36415; 71045; 80053; 83735; 84484; 85025; 86308; 87651; 93005; 94640; 96361; 96374; 96375; 99284; 99285; J2405; J2919

== ENCOUNTER → 2024-05-28 08:23 | Outpatient (BNV) | payer OTHER, SELFPAY | PROVIDERS: Emergency Provider Emergency Medicine; PCP Nurse Practitioner Family; Visit Provider Internal Medicine | DX: R06.02 Shortness of breath (principal); R00.0 Tachycardia, unspecified; I45.19 Other right bundle-branch block; R94.31 Abnormal electrocardiogram [ECG] [EKG] | CPT/HCPCS: 93010 ==

== ENCOUNTER 2025-03-28 09:31 | Emergency (ER) | payer OTHER, SELFPAY ==
[2025-03-28 10:13] VITALS: BP 125/91; PULSE 113; RESP 18; TEMP 37; O2SAT 98; BMI 30.8
--- NOTE | 2025-03-28 11:40 | ED.GENADULT ---
HPI - General Adult General Chief complaint: Ear Problems Stated complaint: Pressure R ear Time Seen by Provider: 03/28/25 11:32 History of Present Illness ED Provider: Rohan Cotter HPI narrative: 24 yold male with pmh of covid in the past presents to the ED for right ear pain after showering and letting water get into ears. Patient states two hours after he started having right ear pain and wooshing sound feeling in ear. Patient denies any dizziness, nausea, vomtiting, fever, chills, or headace. Related Data Previous Rx's ?Medication ?Instructions ?Recorded albuterol sulfate 90 mcg/actuation 1 inh inhalation QID PRN shortness 11/25/21 aerosol inhaler of breath or wheezing #8.5 grams prednisone 20 mg tablet 20 mg PO BID #10 tabs 11/25/21 cephalexin 500 mg capsule 500 mg PO Q6H 3 days #12 caps 02/06/22 acetaminophen 500 mg tablet 1,000 mg (2 x 500 mg) PO Q6H PRN 05/13/23 (Tylenol Extra Strength) fever or pain #20 tabs ibuprofen 400 mg tablet 400 mg PO TID PRN fever or pain 05/13/23 #30 tabs ondansetron 4 mg disintegrating 4 mg PO Q6-8H PRN nausea and 05/13/23 tablet vomiting #14 tabs ketorolac 10 mg tablet 10 mg PO TID PRN pain 5 days #15 01/23/24 tabs ondansetron 4 mg disintegrating 4 mg PO Q6H PRN nausea and 01/23/24 tablet vomiting #14 tabs albuterol sulfate 90 mcg/actuation 2 inh inhalation Q4-6H PRN 05/28/24 breath activated powder inhaler shortness of breath or wheezing #1 ea azithromycin 250 mg tablet See Rx Instructions PO .COMPLEX #6 05/28/24 tabs guaifenesin 200 mg tablet 200 mg PO Q4H PRN cough #20 tabs 05/28/24 prednisone 20 mg tablet 20 mg PO DAILY 5 days #5 tabs 05/28/24 amoxicillin 875 mg-potassium 1 tab PO Q12H 10 days #20 tabs 03/28/25 clavulanate 125 mg tablet naproxen 500 mg tablet 500 mg PO BID PRN pain #14 tabs 03/28/25 Allergies Allergy/AdvReac Type Severity Reaction Status Date / Time Alluminum Allergy Rash Uncoded 03/28/25 10:13 Review of Systems Review of Systems: Right ear pain Yes all other systems are reviewed and are negative [facility] Past Medical History Medical History Panic disorder Asthma ADH disorder Social History Social History Substance Use Type: Marijuana Advance Directives: No Advance Directives Information Provided: Yes Physical Exam ED Vital Signs: Vital Signs - 24 hr 03/28/25 10:13 Temperature 98.6 F Pulse Rate 113 H Respiratory Rate 18 Blood Pressure 125/91 H Pulse Oximetry 98 Oxygen Delivery Method Room Air BMI result Body Mass Index 30.8 Const General: cooperative, healthy appearing, comfortable, no acute distress, well developed, alert, awake and Physically active Orientation/consciousness: patient oriented x3 HENMT Head: Yes normal to inspection, Yes No palpable skull fracture present, Yes normocephalic and Yes atraumatic Ears: hearing grossly normal bilaterally, external ears normal, TM normal on the left, EAC's normal, mastoids normal, no periauricular adenopathy and TM abnormal erythematous on the right Throat: Yes posterior oropharynx normal, Yes tonsils normal and Yes uvula midline Eyes General: appearance normal, both eyes and all related structures Neck Neck: Yes normal visual inspection, Yes full ROM, Yes no lymphadenopathy, Yes no meningeal signs, Yes trachea midline, Yes supple, No anterior neck swelling and No tender Chest Chest palpation & inspection: normal inspection of the chest and normal palpation of entire chest wall Resp Effort & Inspection: normal respiratory effort and able to speak in complete sentences Auscultation: clear to auscultation bilaterally Cardio Jugular venous distension: no JVD Heart sounds: S1 normal heart sound present and S2 normal heart sound present GI Inspection: Yes normal to inspection Palpation (GI): Soft to palpation, not firm, nontender, no guarding and not rigid General: Yes no CVA tenderness Back/Spine/Pelvis Back: no CVA tenderness and No back tenderness Skin General skin exam: no rashes or lesions noted, elasticity normal and turgor normal Neuro General: patient oriented x3, gait normal, tone normal, moves all extremities, Normal light touch and pain sensation, no meningeal signs, no focal motor deficits, CN's II-XI intact bilaterally and normal sensation to monofilament Extrem General: Yes normal to inspection, Yes full ROM and Yes capillary refill normal Psych Appearance: grossly normal, well kempt and not disheveled Medical Decision Making Medical Decision Making MDM Narrative: 24-year-old male presents to the ED for right ear pain after, the shower and water went into his ear. Physical exam positive for tympanic membrane erythema and slight bulging. Negative for signs of perforation. Patient will be discharged antibiotics. Not suspecting mastoiditis, stroke, osteomyelitis, cellulitis, any other life-threatening etiology. Patient explained worrisome signs and informed to return to the ED immediately Differential Diagnosis Differential Diagnoses: The differential diagnosis associated with the presentation includes (Otitis media and externa, perforation, middle ear effusion) Admission/Observation Consideration of admission/observation: Escalation of care including admission/observation considered Independent Historian Clinical information obtained from an independent historian. History obtained from or confirmed by: Other (patient) Prescription Management I considered prescription management with: Pain Medication and Antibiotic Discharge Plan Discharge Clinical Impression: Otitis media Patient Disposition: Home, Self-Care Instructions: Ear Infection (ED) Additional Instructions: Recommend follow up with primary care provider and director of early childhood education. You were diagnosed with the ear infection which can sometimes lead to middle ear effusion. Return to the ED immediately for any headache, nausea, vomiting, severe pain, ear discharge, redness swelling behind ear, dizziness, nausea, vomiting, intractable fever, or any other concerning symptoms. Prescriptions: New amoxicillin-pot clavulanate 875-125 mg tablet 1 tab PO Q12H 10 Days Qty: 20 0RF naproxen 500 mg tablet 500 mg PO BID PRN (Reason: pain) Qty: 14 0RF No Action cephalexin 500 mg capsule 500 mg PO Q6H 3 Days Qty: 12 0RF albuterol sulfate 90 mcg/actuation HFA aerosol inhaler 1 inh inhalation QID PRN (Reason: shortness of breath or wheezing) Qty: 8.5 0RF prednisone 20 mg tablet 20 mg PO BID Qty: 10 0RF acetaminophen [Tylenol Extra Strength] 500 mg tablet 1,000 mg PO Q6H PRN (Reason: fever or pain) Qty: 20 0RF ibuprofen 400 mg tablet 400 mg PO TID PRN (Reason: fever or pain) Qty: 30 0RF ondansetron 4 mg tablet,disintegrating 4 mg PO Q6-8H PRN (Reason: nausea and vomiting) Qty: 14 0RF ondansetron 4 mg tablet,disintegrating 4 mg PO Q6H PRN (Reason: nausea and vomiting) Qty: 14 0RF ketorolac 10 mg tablet 10 mg PO TID PRN (Reason: pain) 5 Days Qty: 15 0RF azithromycin 250 mg tablet See Rx Instructions .ROUTE .COMPLEX Qty: 6 0RF Rx Instructions: For 250 mg dose pack: take 500 mg today (day 1), then 250 mg for 4 days (days 2-5) prednisone 20 mg tablet 20 mg PO DAILY 5 Days Qty: 5 0RF albuterol sulfate 90 mcg/actuation aerosol powdr breath activated 2 inh inhalation Q4-6H PRN (Reason: shortness of breath or wheezing) Qty: 1 0RF guaifenesin 200 mg tablet 200 mg PO Q4H PRN (Reason: cough) Qty: 20 0RF Referrals: Coleman Sinha [Physician] - (Otitis media possible middle ear effusion) Angela Milton NP [Primary Care Provider] - (Otitis media possible middle ear effusion) Stand Alone Forms: Work/School Release Interventions: ED Discharge Assessment Last Done: 03/28/25 11:57 Discharge Date/Time: 03/28/25 11:58 Print Language: Senegalese
[2025-03-28 11:57] VITALS: BP 125/91; PULSE 113; RESP 18; TEMP 37; O2SAT 98
--- OUTSIDE RECORDS SUMMARY | 2025-03-28 13:21 | XMS_ITS | Clinical Summary ---
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 Name Role Phone Unavailable Primary Care Provider Unavailabl e Social History Tobacco Use Types Packs/Day Years Used Date Smoking Tobacco: Never Assessed Sex and Gender Information Value Date Recorded Sex Assigned at Not on file Legal Sex Male 1:19 PM EST Gender Identity Not on file Sexual Orientation Not on file Plan of Treatment Health Maintenance Due Date Last Done Comments HPV Vaccines (1 - Male 3-dos e series) 2014 DTaP,Tdap,and Td Vaccines (1 - Tdap) 2018 Hepatitis B Vaccines (1 of 3 - 19+ 3-dose series) 2018 Depression Screening 10/21/2022 HIV Screening 10/21/2022 Hepatitis C Screening 10/21/2022 Social Influencers of Health Screening 10/21/2022 COVID-19 Vaccine ( - 2023-2 5 season) 2024 Influenza Vaccine (Season Ended) 2025 HIB Vaccines Aged Out No longer eligi ble based on patient's age to complete this topic Hepatitis A Vaccines Aged Out No long er eligible based on patient's age to complete this topic IPV Vaccines Aged Out No longer eligi ble based on patient's age to complete this topic MMR Vaccines Aged Out No longer eligi ble based on patient's age to complete this topic Meningococcal ACWY Vaccine Aged Out N o longer eligible based on patient's age to complete this topic Meningococcal B Vaccine Aged Out No l onger eligible based on patient's age to complete this topic Pneumococcal Vaccine: Pediat rics (0 to 5 Years) and At-Risk Patients (6 to 64 Years) Aged Out No longer eligible b ased on patient's age to complete this topic RSV Immunization Patients Un kamran 20 months Aged Out No longer eligible b ased on patient's age to complete this topic Varicella Vaccines Aged Out No longer eligible based on patient's age to complete this topic
--- OUTSIDE RECORDS SUMMARY | 2025-03-28 13:21 | XMS_ITS | Data Portability ---
Author Organization [facility] [address] Address [address] [place] [address] Care Team Providers Care Billing And Insurance Coordinator Name Role Phone JUAN FOWLER Primary Care Provider Assessment No assessment recorded. Plan of Treatment Reminders Order Date Submit Date Provider Last Modified By Organization Details Last Modified Time Details Appointments None recorded. Lab urinalysis , dipstick 2022 023 [email or web address], [address] [place], [address], 12:49:43 Referral emergency medicine referral 2022 023 [email or web address] Not available 12:51:00 Procedures None recorded. Surgeries None recorded. Imaging None recorded. Medication Orders None recorded. Patient TargetsNo targets recorded. Patient InstructionsNo instructions recorded. Reason for Referral Emergency Medicine Referral for Right lower quadrant pain Referring Physician: Steven Fountain, Urgent Care, Encounter Date: 05/13/2023 Results Created Date Observation Date Name Description Value Unit Range Abnormal Flag Note LastModifiedBy Organization Detail LastModifiedTime 05/13/2005/13/2023 urina lysis , dipst ick Unknown Analyte Normal = light yellow Not Available [address] [place], [address], 05/13/2023 11:59:50 05/13/20 23 05/13/2023 urina lysis , dipst ick Unknown Analyte Normal = clear Not Available [address] [place], [address], 05/13/2023 11:59:50 05/13/2005/13/2023 urina lysis , dipst ick Unknown Analyte Normal = negati ve Not Available [address] [place], [address], 05/13/2023 11:59:50 05/13/20 23 05/13/2023 urina lysis , dipst ick Unknown Analyte Dark Yellow Not Available [address] [place], [address], 05/13/2023 11:59:50 05/13/20 23 05/13/2023 urina lysis , dipst ick Unknown Analyte Clear Not Available [facility] [address] [place], [address], 05/13/2023 11:59:50 05/13/20 23 05/13/2023 urina lysis , dipst ick Unknown Analyte Negati ve Not Available [address] [place], [address], 05/13/2023 11:59:50 05/13/20 23 05/13/2023 urina lysis , dipst ick Unknown Analyte Normal = Negati ve Not Available [address] [place], [address], 05/13/2023 11:59:50 05/13/20 23 05/13/2023 urina lysis , dipst ick Unknown Analyte Negati ve Not Available [address] [place], [address], 05/13/2023 11:59:50 05/13/20 23 05/13/2023 urina lysis , dipst ick Unknown Analyte Normal = Negati ve Not Available [address] [place], [address], 05/13/2023 11:59:50 05/13/20 23 05/13/2023 urina lysis , dipst ick Unknown Analyte Negati ve Not Available [address] [place], [address], 05/13/2023 11:59:50 05/13/20 23 05/13/2023 urina lysis , dipst ick Unknown Analyte Normal = 1.010, 1.015, 1.020 Not Available [address] [place], [address], 05/13/2023 11:59:50 05/13/20 23 05/13/2023 urina lysis , dipst ick Unknown Analyte 1.025 Not Available [facility] [address] [place], [address], 05/13/2023 11:59:50 05/13/20 23 05/13/2023 urina lysis , dipst ick Unknown Analyte Normal = Negati ve Not Available [address] [place], [address], 05/13/2023 11:59:50 05/13/20 23 05/13/2023 urina lysis , dipst ick Unknown Analyte Negati ve Not Available [address] [place], [address], 05/13/2023 11:59:50 05/13/20 23 05/13/2023 urina lysis , dipst ick Unknown Analyte Normal = 6.5, 7.0, 7.5, 8.0 Not Available [address] [place], [address], 05/13/2023 11:59:50 05/13/20 23 05/13/2023 urina lysis , dipst ick Unknown Analyte 6.0 Not Available [address] [place] [address] [address] [place], [address], 05/13/2023 11:59:50 05/13/20 23 05/13/2023 urina lysis , dipst ick Unknown Analyte Normal = Negati ve Not Available [address] [place], [address], 05/13/2023 11:59:50 05/13/20 23 05/13/2023 urina lysis , dipst ick Unknown Analyte Trace Not Available [address] [place] [address] [address] [place], [address], 05/13/2023 11:59:50 05/13/20 23 05/13/2023 urina lysis , dipst ick Unknown Analyte Normal = 0.2, 1.0 Not Available [address] [place], [address], 05/13/2023 11:59:50 05/13/20 23 05/13/2023 urina lysis , dipst ick Unknown Analyte 0.2 E.U./d L Not Available [address] [place], [address], 05/13/2023 11:59:50 05/13/20 23 05/13/2023 urina lysis , dipst ick Unknown Analyte Normal = Negati ve Not Available [address] [place], [address], 05/13/2023 11:59:50 05/13/20 23 05/13/2023 urina lysis , dipst ick Unknown Analyte Normal = Negati ve Not Available [address] [place], [address], 05/13/2023 11:59:50 05/13/2005/13/2023 urina lysis , dipst ick Unknown Analyte Negati ve Not Available [address] [place], [address], 05/13/2023 11:59:50 05/13/2005/13/2023 urina lysis , dipst ick Unknown Analyte Negati ve Not Available [address] [place], [address], 05/13/2023 11:59:50 Result Notes None recorded. Problems Name Problem SNOMED Code Status Onset Date Resolution Date Notes Provider Name and Address Organization Details Recorded Time Asthma 091129330 Active 023 [facility] 05/13/2023 11:56:35 Problem Notes None recorded. Procedures Surgical History Date Name Laterality Status Provider Name and Address Organization Details Recorded Time operation on urethra completed EMILY HOBSON - [facility] 05/13/2023 11:56:55 Imaging Results None recorded. Procedure Notes None recorded. Medical Equipment None Reported. Allergies No known drug allergies Medications Name Sig Start Date Stop Date Status Note LastModified by Organization Details LastModified Time prednisone 10 mg tablet TAKE 4TABS DAILY X3DAYS, 3TABS DAILY X3DAYS, 2TABS DAILY X3DAYS, 1TAB DAILY X3DAYS 05/13 completed Not Available Not Available Not Available doxycycline hyclate 100 mg capsule TAKE 1 CAPSULE BY MOUTH TWICE A DAY DIRECTED FOR 5 DAYS 05/13 completed Not Available Not Available Not Available azithromyci n 250 mg tablet TAKE 2 TABLETS BY MOUTH TODAY, THEN TAKE 1 TABLET DAILY FOR 4 DAYS 05/13 completed Not Available Not Available Not Available terbinafine HCl 250 mg tablet TAKE 1 TABLET BY MOUTH EVERY DAY 05/13 completed Not Available Not Available Not Available morphine 15 mg immediate release tablet TAKE 1/2 TO 1 TABLET EVERY 6-8 HOURS NEEDED FOR PAIN DO NOT DRIVE WHILE TAKING THIS MEDICATIO N 05/13 completed Not Available Not Available Not Available montelukast active Not Available Not A vailable Not Available ProAir HFA 90 mcg/actuati on aerosol inhaler INHALE 2 PUFFS INHALATIO N EVERY 6 HOURS active Not Available Not Available No t Available Symbicort active Not Available Not Tiffany ilable Not Available Vitals Date Recorded Pain severity - 0-10 verbal numeric rating [Score] - Reported Heart rate Oxygen saturation Oxygen saturation in Arterial blood by Pulse oximetry Body height Body mass index (BMI) Body weight Respiratory rate Body temperature Systolic blood pressure Diastolic blood pressure Provider Name and Address Organization Details Last Updated DateTime 3 6 78 /min 98 % 98 % 168.91 cm 28.1 kg/m2 25852.8 5 g 16 /min 98.1 [degF] 126 mm[Hg] 78 mm[Hg] EMILY CEE PA - [facility] 3 11:58:42 Social History Question Answer Notes LastModified by [employer] Details LastModified Time Tobacco Smoking Status Current Every Day Smoker EMILY CEE null, PA - [facility] 05/13/2023 11:57:46 What Is Your Level Of Alcohol Consumption? None Information not available 05/13/2023 Which Illicit Or Recreational Drugs Have You Used? Medical Marijuana Information not available 05/13/2023 How Much Tobacco Do You Smoke? 0.25 PPD Information not available 05/13/2023 Have You Recently Traveled Abroad? No Information not available 05/13/2023 Do You Or Have You Ever Used Any Other Forms Of Tobacco Or Nicotine? No Information not available 05/13/2023 Sex: Unknown Functional Status None recorded. Mental Status None recorded. Family History Relationship Description Onset Age of this Age Resolved Age Notes LastModified by Organization Details LastModified Time Paternal Grandmother Malignant neoplasm of bone [email or web address] Not available 2022 11:57:08 Sister Diabetes insipidus [email or web address] Not available 2022 11:57:16 Medical History No medical history recorded. Past Encounters Encounter ID Performer Location Encounter Start Date Encounter Closed Date Diagnosis/Indication Diagnosis SNOMED-CT Code Diagnosis ICD10 Code Diagnosis Note [id number] [address] [place] [address] 08/17/2019 18:52:41 08/17/2019 19:34:22 [id number] [address] [place] [address] 04/25/2017 11:41:29 04/25/2017 12:38:04 [id number] [address] [place] [address] 08/21/2016 12:23:23 08/21/2016 19:49:22 [id number] [address] [place] [address] 04/13/2017 16:16:13 04/13/2017 17:42:46 [id number] [address] [place] [address] 05/06/2017 10:45:41 05/06/2017 11:18:16 [id number] [address] [place] [address] 08/23/2016 12:19:30 08/23/2016 13:17:59 [id number] [address] [place] [address] 10/31/2015 15:36:51 10/31/2015 16:36:46 [id number] Steven Fountain MD [address] [place] [address] 05/13/2023 11:50:20 05/13/2023 12:51:00 Right lower quadrant pain 111430370 R10.31 RLQ pain since this morning.Un able to rule out Appendicit is and will need further evaluation in the ER.Patient agrees to go to [place] and is [facility] Concerns Section Related Observation LastModified by Organization Detai ls LastModified Time None Recorded Concern Status LastModified by Organization Details LastModified Time None Recorded Advance Directives Directive None Recorded Payers Encounter Date Sequence Insurance Name Policy Number Policy Pires Covered Member ID Pires Member ID Guarantor Name 04/13/2017 1 [facility] [id number] Jaguar Garcia [id number] Axel Garcia 04/25/2017 1 [facility] [id number] Jaguar Garcia [id number] Axel Garcia 05/06/2017 1 [facility] [id number] Jaguar Garcia [id number] Axel Garcia 08/17/2019 1 [facility] [id number] Jaguar Garcia [id number] Axel Garcia 08/17/2019 2 [place] [facility] Axel Garcia [id number] Axel Garcia 05/13/2023 1 [facility] [id number] Axel Garcia [id number] Axel Garcia Notes Date Note Type Note Provider Name and Address Organization Details Recorded Time 05/13/2023 text/html Abdominal Pain UCReported bypatient.Locatio n:RUQ; radiating Quality:pain;amy p;fullness;tender Severity:moderate ; pain level 6/10 Onset/Timing:grad ual Context:no travel Modifying Factors:nothing gives relief Associated Symptoms:no fever; no chills; no blood in the urine; no heartburn; no shortness of breath; no change in bowel/bladder habits Steven Fountain MD [address] [place], [address], [place] - [facility] 05/13/2023 15:34:22
== END 2025-03-28 11:58 | disposition home or self-care (01) ==
PROVIDERS: Emergency Provider Emergency Medicine Emergency Medical Services; PCP Nurse Practitioner Family
DX: H66.91 Otitis media, unspecified, right ear (principal); H92.01 Otalgia, right ear; J45.909 Unspecified asthma, uncomplicated
CPT/HCPCS: 99282; 99283